=== PATIENT | female | born 1940 | race Native Hawaiian/Other Pacific Islander ===

== ENCOUNTER 2017-12-03 00:53 | Inpatient (IN) | payer MEDICARE, OTHER ==
[2017-12-03] MEDS ORDERED: SODIUM CHLORIDE 0.9% 1,000 ML IV STA (01:11)
[2017-12-03 01:26] LABS: Basophils # (A) 0.1 k/uL (0-0.2); Basophils % (A) 1 %; Eosinophils # (A) 0.6 k/uL (0-0.7); Eosinophils % (A) 9 %; HCT 40.1 % (34.0-46.0); HGB 13.1 gm/dL (11.4-16.0); Lymphocytes # (A) 2.5 k/uL (1.0-4.8); Lymphocytes % (A) 35 %; MCH 26.2 pg (25.0-35.0); MCHC 32.7 g/dL (31.0-37.0); MCV 80.4 fL (80.0-100.0); Mean Platelet Volume 8.9; Monocytes # (A) 0.5 k/uL (0-1.0); Monocytes % (A) 6 %; Neutrophils # (A) 3.4 k/uL (1.3-7.7); Neutrophils % (A) 48 %; Platelet Count 293 k/uL (150-450); RBC 4.99 m/uL (3.80-5.40); RDW 13.8 % (11.5-15.5); WBC 7.1 k/uL (3.8-10.6)
[2017-12-03 01:36] LABS: Glucose,Whole Blood 123 mg/dL (75-99)
[2017-12-03 01:44] LABS: Partial Thromboplastin Time 23.5 sec (22.0-30.0); Prothrombin Time 9.9 sec (9.0-12.0)
[2017-12-03 01:47] LABS: ALT 41 U/L (9-52); AST 28 U/L (14-36); Albumin 4.5 g/dL (3.5-5.0); Alkaline Phosphatase 84 U/L (38-126); Anion Gap 14 mmol/L; Blood Urea Nitrogen 16 mg/dL (7-17); Calcium 9.9 mg/dL (8.4-10.2); Carbon Dioxide 25 mmol/L (22-30); Chloride 101 mmol/L (98-107); Glucose 132 mg/dL (74-99); Potassium 4.5 mmol/L (3.5-5.1); Sodium 140 mmol/L (137-145); Total Bilirubin 0.8 mg/dL (0.2-1.3); Total Protein 7.5 g/dL (6.3-8.2)
[2017-12-03 01:49] LABS: Creatine Kinase 92 U/L (30-135)
[2017-12-03 02:02] LABS: Troponin I <0.012 ng/mL (0.000-0.034)
[2017-12-03 02:08] LABS: Creatine Kinase MB 2.7 ng/mL (0.0-2.4)
--- NOTE | 2017-12-03 02:24 | ED ---
General Adult HPI - General Chief complaint: Altered Mental Status Stated complaint: stiff muscles,irregular speech Time Seen by Provider: 12/03/17 01:11 Source: patient, family, RN notes reviewed, old records reviewed Mode of arrival: ambulatory Limitations: altered mental status, physical limitation - History of Present Illness Initial comments: This is a 77-year-old female the ER for evaluation, poor strain secondary to leg which barrier. Patient presents ER today for neurological complaint, facial droop slurred speech. Patient has history of high cholesterol, patient does take aspirin on a daily basis. No trauma. Patient herself is no complaints of headache or acute disease - Related Data Allergies Allergy/AdvReac Type Severity Reaction Status Date / Time No Known Allergies Allergy Verified 12/03/17 01:04 Review of Systems ROS Statement: Those systems with pertinent positive or pertinent negative responses have been documented in the HPI. ROS Other: All systems not noted in ROS Statement are negative. Past Medical History Past Medical History: Hyperlipidemia History of Any Multi-Drug Resistant Organisms: None Reported Past Surgical History: No Surgical Hx Reported Past Psychological History: No Psychological Hx Reported Smoking Status: Never smoker Past Alcohol Use History: Rare Past Drug Use History: None Reported General Exam - General Exam Comments Initial Comments: NIH of 5 Limitations: altered mental status, physical limitation General appearance: alert, in no apparent distress Head exam: Present: atraumatic, normocephalic, normal inspection Eye exam: Present: normal appearance, PERRL, EOMI. Absent: scleral icterus, conjunctival injection, periorbital swelling ENT exam: Present: normal exam, mucous membranes moist Neck exam: Present: normal inspection. Absent: tenderness, meningismus, lymphadenopathy Respiratory exam: Present: normal lung sounds bilaterally. Absent: respiratory distress, wheezes, rales, rhonchi, stridor Cardiovascular Exam: Present: regular rate, normal rhythm, normal heart sounds. Absent: systolic murmur, diastolic murmur, rubs, gallop, clicks GI/Abdominal exam: Present: soft, normal bowel sounds. Absent: distended, tenderness, guarding, rebound, rigid Extremities exam: Present: normal inspection, full ROM, normal capillary refill. Absent: tenderness, pedal edema, joint swelling, calf tenderness Back exam: Present: normal inspection Neurological exam: Present: alert, oriented X3, CN II-XII intact Psychiatric exam: Present: normal affect, normal mood Skin exam: Present: warm, dry, intact, normal color. Absent: rash Course Vital Signs 12/03/17 12/03/17 00:57 01:50 Temperature 98.5 F 98.1 F Pulse Rate 82 80 Respiratory 15 16 Rate Blood Pressure 142/75 147/66 O2 Sat by Pulse 97 96 Oximetry - Reevaluation(s) Reevaluation #1: 12/03/17 03:35 A she does not keep he candidate secondary to symptom onset this morning Reevaluation #2: 12/03/17 03:35 Patient poor strain, history obtained from family explained to family EKG Findings - EKG Comments: EKG Findings:: EKG shows normal sinus rhythm rate of 85, [place] 204, QRS is 80, QTC to 459 Medical Decision Making - Medical Decision Making 77 female the ER for evaluation, patient was essay for evaluation regards to altered mental state, third speech and facial droop. Patient to be admitted for positive CVA - Lab Data Result diagrams: 12/03/17 01:15 12/03/17 01:15 Lab Results 12/03/17 12/03/17 12/03/17 Range/Units 01:15 01:15 01:15 WBC 7.1 (3.8-10.6) k/uL RBC 4.99 (3.80-5.40) m/uL Hgb 13.1 (11.4-16.0) gm/dL Hct 40.1 (34.0-46.0) % MCV 80.4 (80.0-100.0) fL MCH 26.2 (25.0-35.0) pg MCHC 32.7 (31.0-37.0) g/dL RDW 13.8 (11.5-15.5) % Plt Count 293 (150-450) k/uL Neutrophils % 48 % Lymphocytes % 35 % Monocytes % 6 % Eosinophils % 9 % Basophils % 1 % Neutrophils # 3.4 (1.3-7.7) k/uL Lymphocytes # 2.5 (1.0-4.8) k/uL Monocytes # 0.5 (0-1.0) k/uL Eosinophils # 0.6 (0-0.7) k/uL Basophils # 0.1 (0-0.2) k/uL PT (9.0-12.0) sec INR (<1.2) APTT (22.0-30.0) sec Sodium 140 (137-145) mmol/L Potassium 4.5 (3.5-5.1) mmol/L Chloride 101 (98-107) mmol/L Carbon Dioxide 25 (22-30) mmol/L Anion Gap 14 mmol/L BUN 16 (7-17) mg/dL Creatinine 0.60 (0.52-1.04) mg/dL Est GFR (CKD-EPI)AfAm >90 (>60 ml/min/1.73 sqM) Est GFR (CKD-EPI)NonAf 89 (>60 ml/min/1.73 sqM) Glucose 132 H (74-99) mg/dL POC Glucose (mg/dL) (75-99) mg/dL POC Glu Embedded Systems Engineer ID Calcium 9.9 (8.4-10.2) mg/dL Total Bilirubin 0.8 (0.2-1.3) mg/dL AST 28 (14-36) U/L ALT 41 (9-52) U/L Alkaline Phosphatase 84 (38-126) U/L Total Creatine Kinase 92 (30-135) U/L CK-MB (CK-2) 2.7 H* (0.0-2.4) ng/mL CK-MB (CK-2) Rel Index 2.9 Troponin I <0.012 (0.000-0.034) ng/mL Total Protein 7.5 (6.3-8.2) g/dL Albumin 4.5 (3.5-5.0) g/dL 12/03/17 12/03/17 Range/Units 01:15 01:15 WBC (3.8-10.6) k/uL RBC (3.80-5.40) m/uL Hgb (11.4-16.0) gm/dL Hct (34.0-46.0) % MCV (80.0-100.0) fL MCH (25.0-35.0) pg MCHC (31.0-37.0) g/dL RDW (11.5-15.5) % Plt Count (150-450) k/uL Neutrophils % % Lymphocytes % % Monocytes % % Eosinophils % % Basophils % % Neutrophils # (1.3-7.7) k/uL Lymphocytes # (1.0-4.8) k/uL Monocytes # (0-1.0) k/uL Eosinophils # (0-0.7) k/uL Basophils # (0-0.2) k/uL PT 9.9 (9.0-12.0) sec INR 1.0 (<1.2) APTT 23.5 (22.0-30.0) sec Sodium (137-145) mmol/L Potassium (3.5-5.1) mmol/L Chloride (98-107) mmol/L Carbon Dioxide (22-30) mmol/L Anion Gap mmol/L BUN (7-17) mg/dL Creatinine (0.52-1.04) mg/dL Est GFR (CKD-EPI)AfAm (>60 ml/min/1.73 sqM) Est GFR (CKD-EPI)NonAf (>60 ml/min/1.73 sqM) Glucose (74-99) mg/dL POC Glucose (mg/dL) 123 H (75-99) mg/dL POC Glu Embedded Systems Engineer ID Teressa Jarvis Calcium (8.4-10.2) mg/dL Total Bilirubin (0.2-1.3) mg/dL AST (14-36) U/L ALT (9-52) U/L Alkaline Phosphatase (38-126) U/L Total Creatine Kinase (30-135) U/L CK-MB (CK-2) (0.0-2.4) ng/mL CK-MB (CK-2) Rel Index Troponin I (0.000-0.034) ng/mL Total Protein (6.3-8.2) g/dL Albumin (3.5-5.0) g/dL - Radiology Data Radiology results: report reviewed (DT brain is had neck, is negative for acute disease), image reviewed Disposition Clinical Impression: CVA (cerebral vascular accident) Disposition: ADMITTED IP TO THIS HOSP Condition: Fair Is patient prescribed a controlled substance at d/c from ED?: No
--- NOTE | 2017-12-03 03:02 | CT ---
EXAMINATION TYPE: CT angio head neck DATE OF EXAM: 12/03/2017 HISTORY: slurred speech COMPARISON: NONE CT DLP: 1244.30 mGycm. Automated Exposure Control for Dose Reduction was Utilized. TECHNIQUE: CTA scan of the neck is performed with IV Contrast, patient injected with 65 mL of Isovue 370, axial images are obtained, coronal and sagittal reformatted images are reviewed. Three-D recons tructed images are created on an independent workstation and reviewed. FINDINGS: There is normal branching pattern of the great vessels on the aortic arch. There is bilateral symmetr ic appearance of the vertebral arteries. There is arterial flow in the common internal and external c arotid arteries. There is wide patency of the carotid artery bifurcations. There is no evidence of ca rotid or vertebral artery aneurysm or dissection. There is arterial flow in the vertebrobasilar artery system. There is arterial flow in the anterior m iddle and posterior cerebral arteries. There is no sign of aneurysm or neovascularity. There is vianey l contrast opacification of the venous sinuses. There is groundglass interstitial density in the uppe r lobes. IMPRESSION: Negative CT angiogram of the neck. Negative CT angiogram of the brain. No evidence of aneurysm or dis section or stenosis. Interstitial upper lobe pulmonary infiltrates.
--- NOTE | 2017-12-03 03:04 | CT ---
EXAMINATION TYPE: CT brain wo con for TPA DATE OF EXAM: 12/03/2017 COMPARISON: NONE HISTORY: slurred speech, r/o stroke CT DLP: 1244.30 mGycm Automated exposure control for dose reduction was used. FINDINGS: There is cerebral cortical atrophy. There is no mass effect nor midline shift. There is no sign of in tracranial hemorrhage. There is minimal hypodensity in the periventricular white matter. The calvariu m is intact. IMPRESSION: MILD ATROPHY AND MINIMAL CHRONIC SMALL VESSEL ISCHEMIA. NO ACUTE INTRACRANIAL ABNORMALITY.
[2017-12-03] MEDS ORDERED: SODIUM CHLORIDE 0.9% 1,000 ML IV SCH (03:15)
[2017-12-03] MEDS ORDERED: ASPIRIN 325 MG TAB PO STA (03:15)
[2017-12-03 03:36] VITALS: TEMP 97
[2017-12-03] MEDS ORDERED: metFORMIN 500 MG TAB PO SCH (10:00)
[2017-12-03] MEDS ORDERED: ASPIRIN 81 MG PO SCH (10:00)
[2017-12-03] MEDS ORDERED: glipiZIDE 5 MG TAB PO SCH (10:00)
[2017-12-03 11:44] VITALS: BP 151/73; PULSE 88; RESP 18
[2017-12-03] MEDS ORDERED: INSULIN ASPART 100 UNIT/ML 1 ML 10 ML VIAL SQ SCH (12:30)
[2017-12-03] MEDS ORDERED: FAMOTIDINE 20 MG/2 ML VIAL IV SCH (21:00)
[2017-12-03] MEDS ORDERED: ATORVASTATIN 10 MG TAB PO SCH (21:00)
[2017-12-03] MEDS ORDERED: HEPARIN SODIUM,PORCINE 5,000 UNIT/ML 1 ML VIAL SQ SCH (21:00)
--- NOTE | 2017-12-03 23:27 | P.DS ---
Providers Date of admission: 12/03/17 03:16 Expected date of discharge: 12/03/17 Attending physician: Delvin Parker Consults: 12/03/17 03:15 Consult Physician Routine Consulting Provider: Abner Mix Consult Reason/Comments: cva Do you want consulting provider notified?: Yes Primary care physician: Physician Nonstaff Hospital Course: This note is for both H&P and discharge summary . Patient is a 77-year-old female was admitted to the hospital with facial droop and slurred speech as per ER note. Patient was admitted with acute CVA and CT head is negative. Patient left AGAINST MEDICAL ADVICE from the ER Patient Condition at Discharge: Fair Plan - Discharge Summary Discharge Rx Participant: No New Discharge Prescriptions: No Action metFORMIN HCL 1,000 mg PO BID Lovastatin [Mevacor] 20 mg PO HS glipiZIDE [Glucotrol] 5 mg PO BID Aspirin EC [Ecotrin Low Dose] 81 mg PO DAILY Discharge Medication List Aspirin EC [Ecotrin Low Dose] 81 mg PO DAILY 12/03/17 [History] Lovastatin [Mevacor] 20 mg PO HS 12/03/17 [History] glipiZIDE [Glucotrol] 5 mg PO BID 12/03/17 [History] metFORMIN HCL 1,000 mg PO BID 12/03/17 [History] Follow up Appointment(s)/Referral(s): Nonstaff,Physician [Primary Care Provider] - 1-2 days Discharge Disposition: Left Against Medical Advice
--- NOTE | 2017-12-03 23:27 | P.HPIM ---
History of Present Illness H&P Date: 12/03/17 Chief Complaint: Slurred speech This note is for both H&P and discharge summary . Patient is a 77-year-old female was admitted to the hospital with facial droop and slurred speech as per ER note. Patient was admitted with acute CVA and CT head is negative. Patient left AGAINST MEDICAL ADVICE from the ER Past Medical History Past Medical History: Diabetes Mellitus, Hyperlipidemia Additional Past Medical History / Comment(s): NIDDM type II History of Any Multi-Drug Resistant Organisms: None Reported Past Surgical History: No Surgical Hx Reported Additional Past Surgical History / Comment(s): Pt has never had surgery Past Anesthesia/Blood Transfusion Reactions: Unable to Obtain Additional Past Anesthesia/Blood Transfusion Reaction / Comment(s): Pt has never had surgery or anesthesia. Smoking Status: Never smoker - Past Family History Mother History Unknown: Yes Additional Family Medical History / Comment(s): Mother when pt was 7 yrs old. Father Family Medical History: No Reported History Medications and Allergies Home Medications Medication Instructions Recorded Confirmed Type Aspirin EC [Ecotrin Low Dose] 81 mg PO DAILY 12/03/17 12/03/17 History Lovastatin [Mevacor] 20 mg PO HS 12/03/17 12/03/17 History glipiZIDE [Glucotrol] 5 mg PO BID 12/03/17 12/03/17 History metFORMIN HCL 1,000 mg PO BID 12/03/17 12/03/17 History Allergies Allergy/AdvReac Type Severity Reaction Status Date / Time No Known Allergies Allergy Verified 12/03/17 08:31 Physical Exam Vitals: Vital Signs Temp Pulse Resp BP Pulse Ox 12/03/17 11:42 88 18 151/73 97 12/03/17 09:49 63 127/69 94 L 12/03/17 07:15 85 16 139/88 98 12/03/17 03:35 97 F L 78 16 121/56 98 12/03/17 01:50 98.1 F 80 16 147/66 96 12/03/17 00:57 98.5 F 82 15 142/75 97 Results CBC & Chem 7: 12/03/17 01:15 12/03/17 01:15 Labs: Abnormal Lab Results - Last 24 Hours (Table) 12/03/17 12/03/17 12/03/17 Range/Units 01:15 01:15 01:15 Glucose 132 H (74-99) mg/dL POC Glucose (mg/dL) 123 H (75-99) mg/dL CK-MB (CK-2) 2.7 H* (0.0-2.4) ng/mL Thrombosis Risk Factor Assmnt - Choose All That Apply Any of the Below Risk Factors Present?: Yes Other Risk Factors: Yes Each Risk Factor Represents 3 Points: Age 75 years or older Other congenital or acquired thrombophilia - If yes, enter type in comment: No Each Risk Factor Represents 5 Points: Stroke (< 1 month) Thrombosis Risk Factor Assessment Total Risk Factor Score: 8 Thrombosis Risk Factor Assessment Level: High Risk
[2017-12-04] MEDS ORDERED: ASPIRIN 325 MG TAB PO SCH (03:15)
== END 2017-12-03 12:45 | disposition left against medical advice (07) | DRG 66 ==
LOC: EC 00:53 → 6SEL 03:16
PROVIDERS: ADMIT Hospitalist; ATTEND Hospitalist
DX: I63.9 Cerebral infarction, unspecified (principal); E11.9 Type 2 diabetes mellitus without complications; R29.810 Facial weakness; R47.81 Slurred speech; R40.2362 Coma scale, best motor response, obeys commands, at arrival to emergency department; R40.2142 Coma scale, eyes open, spontaneous, at arrival to emergency department; R40.2252 Coma scale, best verbal response, oriented, at arrival to emergency department; R29.705 NIHSS score 5; E78.5 Hyperlipidemia, unspecified; Z79.82 Long term (current) use of aspirin; Z79.84 Long term (current) use of oral hypoglycemic drugs; Z79.899 Other long term (current) drug therapy
CPT/HCPCS: 36415; 70450; 70496; 70498; 80053; 82550; 82553; 84484; 85025; 85610; 85730; 93005; 96361; 96372; 96374; 99285